=== PATIENT | male | born 1985 | race Asian ===

== ENCOUNTER 2019-04-17 03:47 | Emergency (ER) | payer OTHER ==
[~2019-04-17] VITALS: Ht 170 cm; Wt 70.0 kg
[2019-04-17 04:05] VITALS: BP 134/69; TEMP 96.9
[2019-04-17] MEDS ORDERED: MEDROL 4MG DOSPA4 MG PO (05:30)
[2019-04-17 06:25] VITALS: PULSE 71
== END 2019-04-17 06:25 | disposition home or self-care (01) ==
LOC: COL.ER 03:47
DX: T78.1XXA Other adverse food reactions, not elsewhere classified, initial encounter (principal)
CPT/HCPCS: J2930

== ENCOUNTER → 2019-11-05 | Outpatient (CLI) | payer OTHER ==
[~2019-11-05] MED LIST: MEDROL 4MG DOSPA4 MG PO
== END ==
LOC: COL.RAD 12:47
DX: M54.2 Cervicalgia (principal); G89.29 Other chronic pain

== ENCOUNTER 2019-11-15 09:20 | Outpatient (RCR) | payer OTHER | END 2020-02-13 | disposition home or self-care (01) | LOC: MKS.ESL.PT | DX: M54.2 Cervicalgia (principal); G89.29 Other chronic pain | CPT/HCPCS: G0283-GP ==